=== PATIENT | male | born 1960 | race Caucasian/White ===

== ENCOUNTER 2021-04-11 08:42 | Observation (INO) | payer BC ==
[2021-04-11] VITALS (8 sets, daily range): BP systolic 103–145; BP diastolic 60–80
[~2021-04-11] VITALS: Ht 175.3 cm; Wt 86.8 kg
--- NOTE | ~2021-04-11 | EMS ---
[facility] [address] [place] [address] EMS Patient Care Report Name: MARY RAMOS Room #: 206-P DELANEY Sherman#: [id number] Admission: 04/11/21 Attend Phys: Tod Tenorio MD, Discharge: 04/13/21 Date of : 60 Report #: [id number] THIS REPORT FOR: //name// Report Transmitted: 04/15/2021 13:19 EMS Care Summary [facility] Incident [id number] @ 04/11/2021 08:12 Incident Location [address] [place] [address] Patient Mary Ramos Male, 61 Years 1960 Patient Address [address] [place] [address] Patient Allergies Allergic state (disorder), Disposition Transported No Lights/[place] Dispatch Reason No Other Appropriate Choice Transported To [facility] Narrative E 5 dispatched to provide rapid critical care transport of a patient with probable inferior STEMI for interventional cardiology services not available locally. Per YOJANA Huerta, pt presented to ED at approximately 0800 after experiencing acute onset of chest pressure and bilateral arm numbness at approximately 0530. EKG revealed probable inferior STEMI. Pt found lying on ED stretcher. Pt assessed and placed on E monitor, and moved to [facility] sled. Pt secured with all available safety straps and loaded into running AC without complication. Pt transported to [facility] with ongoing monitoring en route. Pt given 100 mcg fentanyl for 6/10 chest discomfort, with reported reduction in discomfort to 3/10. Upon arrival to [facility], pt taken to cath lab technologist, printed paperwork and verbal report given to assembled team and pt care transferred. [facility] [address] [place] [address] EMS Patient Care Report Name: MARY RAMOS Room #: 206-P DELANEY Sherman#: [id number] Admission: 04/11/21 Attend Phys: Tod Tenorio MD, Discharge: 04/13/21 Date of : 60 Report #: [id number] Initial Vitals @08:50P: 69,R: 32,BP: 182/91,Pain: 6/10,GCS: 15,Temp: 67.82F,SpO2: 99,Revised Trauma: 11, @08:57P: 76,R: 17,BP: 169/70,Pain: 6/10,GCS: 15,Temp: 57.56F,SpO2: 98,Revised Trauma: 12, @09:07P: 71,R: 27,BP: 171/81,Pain: 3/10,GCS: 15,Temp: 72.14F,SpO2: 97,Revised Trauma: 12, @09:17P: 81,R: 18,BP: 173/88,Pain: 3/10,GCS: 15,Temp: 75.55840502511219N,SpO2: 97,Revised Trauma: 12, @09:27P: 69,R: 24,BP: 161/88,Pain: 3/10,GCS: 15,Temp: 74.84F,SpO2: 98,Revised Trauma: 12, @09:35P: 72,R: 18,BP: 187/96,Pain: 3/10,GCS: 15,Temp: 68.18F,SpO2: 96,Revised Trauma: 12, Assessments @08:47MENTAL:SKIN:HEENT:LUNG SOUNDS:ABDOMEN:PELVIS//GI:EXTREMITIES:PULSE:NEURO:@09:29MENTAL:SKIN:HEENT:LUNG SOUNDS:ABDOMEN:PELVIS//GI:EXTREMITIES:PULSE:NEURO: Impression ST elevation (STEMI) myocardial infarction of other sites Procedures @PTANitroglycerin - 10 Micrograms per Minute (mcg/min) - Intravenous (IV) Response: Unchanged @PTAHeparin Infusion - 1000 Units per Hour (units/hr) - Intravenous (IV) Response: Unchanged @PTAHeparin Infusion - 4000 International Units (IU) - Intravenous (IV) Response: Unchanged @PTAAspirin - 325 Milligrams (mg) - Oral Response: Improved @09:01 Fentanyl - 100 Micrograms (mcg) - Intravenous (IV) Response: Improved @PTAIV Therapy - cc () Site: Hand-LeftSucceeded @PTAIV Therapy - cc () Site: Other Peripheral (Not Listed)Succeeded Timeline DRAWING KILN SUPERVISOR,Nitroglycerin - 10 Micrograms per Minute (mcg/min) - Intravenous (IV),Response: Unchanged DRAWING KILN SUPERVISOR,Heparin Infusion - 1000 Units per Hour (units/hr) - Intravenous (IV),Response: Unchanged DRAWING KILN SUPERVISOR,Heparin Infusion - 4000 International Units (IU) - Intravenous (IV),Response: Unchanged DRAWING KILN SUPERVISOR,Aspirin - 325 Milligrams (mg) - Oral,Response: Improved DRAWING KILN SUPERVISOR,IV Therapy - cc Site: Hand-Left,Succeeded, DRAWING KILN SUPERVISOR,IV Therapy - cc Site: Other Peripheral (Not Listed),Succeeded, [facility] [address] [place] [address] EMS Patient Care Report Name: MARY RAMOS Room #: 206-P [facility] Susan MVivianRVivian#: [id number] Admission: 04/11/21 Attend Phys: Tod Tenorio MD, Discharge: 04/13/21 Date of : 60 Report #: [id number] 05:30,Call Received 08:12,Psap Call 08:12,Dispatched 08:25,En Route 08:41,On Scene 08:45,At Patient 08:50,BP: 182/91 M,PULSE: 69,RR: 32 R,SPO2: 99 Ox,ETCO2: ,BG: ,PAIN: 6,GCS: 15, 08:51,Transfer Of Care 08:57,BP: 169/70 M,PULSE: 76,RR: 17 R,SPO2: 98 Ox,ETCO2: ,BG: ,PAIN: 6,GCS: 15, 08:58,Depart Scene 09:01,Fentanyl - 100 Micrograms (mcg) - Intravenous (IV),Response: Improved 09:07,BP: 171/81 M,PULSE: 71,RR: 27 R,SPO2: 97 Ox,ETCO2: ,BG: ,PAIN: 3,GCS: 15, 09:17,BP: 173/88 M,PULSE: 81,RR: 18 R,SPO2: 97 Ox,ETCO2: ,BG: ,PAIN: 3,GCS: 15, 09:25,At Destination 09:27,BP: 161/88 M,PULSE: 69,RR: 24 R,SPO2: 98 Ox,ETCO2: ,BG: ,PAIN: 3,GCS: 15, 09:35,BP: 187/96 M,PULSE: 72,RR: 18 R,SPO2: 96 Ox,ETCO2: ,BG: ,PAIN: 3,GCS: 15, 10:19,In District 10:19,Call Closed Disclaimer v1.1 Copyright 2021 [email or web address] This EMS Care Summary contains data elements from the applicable legal record (which may be displayed differently). It is designed to provide pertinent information for the following purposes: continuity of care, clinical quality, and state data reporting. The complete legal record is available to ED staff and administrators of the receiving hospital in [employer]'s Patient Tracker. All data is provided "as is."
[2021-04-11 10:40] LABS: HEMATOCRIT 44.4 % (42.0-52.0); HEMOGLOBIN 14.9 gm/dL (14.0-18.0); MCH 30.6 pg (26.0-34.0); MCHC 33.5 g/dL (28.0-37.0); MCV 91.5 fL (80.0-100.0); RBC 4.86 mil/uL (4.50-6.00); RDW 12.9 % (10.5-14.5); WBC 12.9 thou/uL (4.0-11.0)
[2021-04-11 10:58] LABS: ALBUMIN 3.4 g/dL (3.4-5.0); CALCIUM 8.5 mg/dL (8.5-10.1); POTASSIUM 4.1 mmol/L (3.5-5.1); TOTAL BILIRUBIN 0.2 mg/dL (0.2-1.0); TOTAL PROTEIN 6.7 g/dL (6.4-8.2)
--- NOTE | 2021-04-11 11:34 | NUR ---
PT ADMITTED FROM INTERNET CONSULTANT AND ORIENTED TO ROOM AND UNIT. BED LOW AND LOCKED, SIDE RAILS UPX3, CALL LIGHT IN REACH. TELE APPLIED AND RIGHT GROIN CDI. WILL CONTINUE TO ASSESS.
--- NOTE | 2021-04-11 15:10 | NUR ---
CONTACT CARDIAC REGIONAL BUSINESS MANAGER ALFREDO DELGADO TO INFORM PT HAD A 11 BEAT RUN OF VTACH AND SOME SOA. INSTRUCTED TO KEEP MONITORING PATIENT AND IF SOA GETS WORSE CONTACT DR. GUEVARA.
--- NOTE | 2021-04-11 15:59 | NUR ---
SPOKE WITH DR. GUEVARA AND INSTRUCTED TO RUN 1 MORE BOTTL OF INTEGRILIN THEN
[2021-04-12 00:04] VITALS: BP 117/61
--- NOTE | 2021-04-12 03:48 | NUR ---
PT HAS BEEN SLEEPING MOST OF THE NIGHT. RESPIRATIONS EVEN AND UNLABORED. RIGHT GROIN CATH SITE C/D/I, WITHOUT HEMATOMA. VSS. AFEBRILE. PT HAS DENIED ANY CHEST PAIN SO FAR DURING THE NIGHT. 2L NC PRN FOR COMFORT. SPO2 >92% ON RA. PT IS UP AD JAY JAY TO THE BTR WITH STEADY GAIT. PROGRESSING TOWARD POC GOALS. WILL CONTINUE TO MONITOR FURTHER.
[2021-04-12 04:27] LABS: HEMATOCRIT 38.9 % (42.0-52.0); HEMOGLOBIN 13.3 gm/dL (14.0-18.0); MCH 31.1 pg (26.0-34.0); MCHC 34.2 g/dL (28.0-37.0); MCV 91.2 fL (80.0-100.0); RBC 4.27 mil/uL (4.50-6.00); RDW 12.7 % (10.5-14.5); WBC 12.2 thou/uL (4.0-11.0)
[2021-04-12 04:30] VITALS: BP 126/63
[2021-04-12 04:45] LABS: CHOLESTEROL 161 mg/dL (<200); HDL CHOLESTEROL 27 mg/dL (>40); LDL CHOLESTEROL 107 mg/dL (<100); TRIGLYCERIDE 137 mg/dL (<150); VLDL 27 mg/dL (<40)
[2021-04-12 04:46] LABS: SERUM ASSESSMENT Clear
--- NOTE | 2021-04-12 07:28 | EKG ---
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
--- NOTE | 2021-04-12 07:29 | EKG ---
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
[2021-04-12 07:50] VITALS: BP 127/73
--- NOTE | 2021-04-12 11:08 | 2DMMODE ---
[facility] [place] [address] 2 D/M-MODE ECHOCARDIOGRAM Name: MARY KERR Room #: 206-P ADM IN M.R.#: [id number] Admission: 04/11/21 Attend Phys: Tod Tenorio MD, Discharge: Date of : 60 Report #: [id number] THIS REPORT FOR: cc: FAM - Family physician unknown FAM - Family physician unknown Coleman Lehman MD [facility] ~ APPROVED REPORT Study performed: 04/12/2021 08:59:59 EXAM: Comprehensive 2D, Doppler, and color-flow Echocardiogram Patient Location: Bedside Room #: 206 Status: routine BSA: 2.00 HR: 59 bpm BP: 127/73 mmHg Rhythm: Bradycardia Other Information Study Quality: Adequate Indications Diabetes CAD Cardiomyopathy STEMI 2D Dimensions RVDd: 37.57 mm IVSd: 9.60 (7-11mm) LVOT Diam: 19.51 (18-24mm) LVDd: 53.84 mm PWd: 11.01 (7-11mm) Ascending Ao: 27.67 (22-36mm) LVDs: 38.94 (25-40mm) Left Atrium: 39.34 (27-40mm) Aortic Root: 34.01 mm IVC: 19.00 mm Volumes Left Atrial Volume (Systole) Single Plane 4CH: 44.95 mL Single Plane 2CH: 48.49 mL LA ESV Index: 26.00 mL/m2 Aortic Valve [facility] [address] [place] [address] 2 D/M-MODE ECHOCARDIOGRAM Name: MARY KERR Room #: [address] [place] [address] IN .R.#: [id number] Admission: 04/11/21 Attend Phys: Tod Tenorio, Discharge: Date of : 60 Report #: [id number] AoV Peak Chris.: 1.13 m/s AO Peak Gr.: 5.09 mmHg LVOT Max P.02 mmHg LVOT Max V: 1.00 m/s JACQUELINE Vmax: 2.65 cm2 Mitral Valve E/A Ratio: 1.3 MV Decel. Time: 175.50 ms MV E Max Chris.: 0.99 m/s MV A Chris.: 0.78 m/s MV PHT: 50.89 ms IVRT: 110.73 ms Pulmonary Valve PV Peak Chris.: 0.87 m/s PV Peak Gr.: 3.03 mmHg Pulmonary Vein P Vein S: 0.67 m/s P Vein A: 0.26 m/s P Vein D: 0.32 m/s P Vein A Dur.: 124.6 msec P Vein S/D Ratio: 2.09 Left Ventricle The left ventricle is normal size. There is normal left ventricular wall thickness. Left ventricular systolic function is mildly decreased. Hypokinesis of base of the inferior and inferolateral dill LVEF 45-50%. The left ventricular diastolic function is normal. Right Ventricle The right ventricle is normal size. The right ventricular systolic function is normal. Atria The left atrium size is normal. The right atrium size is normal. Aortic Valve The aortic valve is mildly sclerotic. No aortic regurgitation is present. There is no aortic valvular stenosis. Mitral Valve The mitral valve is normal in structure. Mild mitral regurgitation. No evidence of mitral valve stenosis. Tricuspid Valve The tricuspid valve is normal in structure. There is no tricuspid [facility] [address] [place] [address] 2 D/M-MODE ECHOCARDIOGRAM Name: USHACRAPO Room #: 206-P ADM IN M.R.#: [id number] Admission: 04/11/21 Attend Phys: Tod Tenorio, Discharge: Date of : 60 Report #: [id number] valve regurgitation noted. Pulmonic Valve The pulmonary valve is normal in structure. There is no pulmonic valvular regurgitation. Great Vessels The aortic root is normal in size. IVC is normal in size and collapses >50% with inspiration. Pericardium There is no pericardial effusion. <Conclusion> Left ventricular systolic function is mildly decreased. LVEF 50%. Hypokinesis of base of the inferior and inferolateral dill The left ventricular diastolic function is normal. The aortic valve is mildly sclerotic. No aortic regurgitation or stenosis Structurally normal mitral valve. Mild mitral regurgitation. Pulmonary artery pressure could not be reliably ascertained There is no pericardial effusion. <ELECTRONICALLY SIGNED> By: Coleman Lehman MD, FACC 04/12/21 1108 07 07 Coleman Lehman MD, FACC /INF
[2021-04-12 11:33] VITALS: BP 140/75
[2021-04-12 15:40] VITALS: BP 151/77
--- NOTE | 2021-04-12 18:49 | NUR ---
PT RESTED IN BED AND AMBULATED ROOM TODAY. NO C/O SOA OR CHEST PAIN. TAKING IN GOOD PO. WILL CONTINUE TO ASSESS.
[2021-04-12 19:24] VITALS: BP 142/82
[2021-04-13 00:02] VITALS: BP 139/80
--- NOTE | 2021-04-13 03:27 | NUR ---
RECEIVED CARE OF THIS PATIENT AT 1900. PATIENT ALERT AND ORIENTED X4. UP AD JAY JAY. DRESSING IN R GROIN INTACT. NO SIGN OF HEMATOMA OR ANY OTHER PROBLEM. SLEPT MOST OF THE NIGHT. DENIES PAIN.
[2021-04-13 03:52] VITALS: BP 105/61
[2021-04-13 07:30] VITALS: BP 135/75
[2021-04-13] MEDS ORDERED: LIPITOR40 MG PO (07:37)
[2021-04-13] MEDS ORDERED: EFFIENT10 MG PO (07:37)
[2021-04-13] MEDS ORDERED: ASPIRIN325 PO (07:37)
[2021-04-13] MEDS ORDERED: COZAAR 25 MG TA25 M1 PO (07:38)
[2021-04-13 12:00] VITALS: BP 141/82
[2021-04-13 14:31] VITALS: BP 141/82
--- NOTE | 2021-04-13 15:53 | NUR ---
ASSESSMENT CHARTED - MEDS PER KENNETH GONZALEZ DIET AND FLUIDS. NO CO'S OF \PAIN OR NAUSA. UIP AD JAY JAY IN ROOM - GROIN SITE C/D/I. PT HOME THIS AFTERNOON - INSTRUCTION RE HOME MEDS/ CARE AND FOLLOW UP GIVEN TO PATIENT STATED UNDERSTANDING OF INSTRUCTION GIVEN. LEFT UNIT VIA WHEELCHAIR - HOME WITH SON VIA PVT VEHICLE NO CO'S AQT TIME OF D/C.
--- NOTE | 2021-04-14 14:34 | CATHLAB ---
[facility] [place] [address] INVASIVE PROCEDURE REPORT Name: MARY KERR Room #: 206-P [facility] Susan MАлександр#: [id number] Admission: 04/11/21 Attend Phys: Tod Tenorio MD, Discharge: 04/13/21 Date of : 60 Report #: [id number] THIS REPORT FOR: cc: FAM - Family physician unknown FAM - Family physician unknown Tod Tenorio MD [facility] ~ APPROVED REPORT Study performed: 04/11/2021 08:46:23 Patient Details Patient Status: ED Room #: The patient is a 61 year-old male Event Personnel Tod Tenorio Copping Machine Operator, Emilee Boogie RTR Monitor, Aiyana Hassan Dubreuil, Ashley RN cutter first Performed Art Access - R femoral artery* Left Heart Cath w/or w/o Coronaries [id number] [facility] H[facility] Revasc AMI Total/Sub Single CIRC C9606 AMIREVSING Aortogram Abdominal Peripheral Angio 051337 Hemostasis w/ Mynx 60476 Initial Mod Sed Same Phys/QHP Gr5y 744305 32725 Mod Sed Same Phys/QHP Ea 573326 Indication STEMI , Chest pain Procedure Narrative The Right Groin^ was infiltrated with 1% Lidocaine subcutaneous anesthesia. A PINNACLE 6FR Sheath #[id number] sheath was inserted into the RFA^. Coronary angiography was performed using coronary diagnostic catheters. The right coronary system was accessed and visualized with a JR4 catheter. The left coronary system was accessed and visualized with a JL4 catheter. The left ventricle was accessed and visualized with a PIGTAIL catheter. Left ventriculogram was performed in 30 degree projection. An aortogram of the abdominal aorta was performed. Closure device was deployed with a Fr MYNXGRIP 6/7F #[id number]. The patient tolerated the procedure well and there were no complications associated with the procedure. There was no hematoma. Intraoperative Conscious Sedation Sedation start time: 9:47 Case end Time: [facility] [address] [place] [address] INVASIVE PROCEDURE REPORT Name: USHANORTH BEND Room #: 206-P [facility] IN M.R.#: [id number] Admission: 04/11/21 Attend Phys: Tod Tenorio, Discharge: 04/13/21 Date of : 60 Report #: [id number] 10:59 Fentanyl 50 mcg Versed 1 mg Fluoro Time: 6.00 minutes Dose: DAP 6855.30 cGycm2 855 mGy Contrast Type and Amount: Visipaque 185 ml Hemodynamics The aortic pressure is 174/81 mmHg with a mean of 87 mmHg. The left ventricular pressure is 182/13 mmHg with a mean of mmHg. The left ventricular end diastolic pressure is 28 mmHg. PCI Technique Lesion Percutaneous coronary intervention was performed on the proximal circumflex artery segment. A LAUNCHER 6FR EBU 3.5 #[id number] Guide Catheter was used to engage the ostium. A Luge Wire .014 x 182CM #[id number] Interventional Guidewire was used to cross the lesion. BALLOON DILATION A Balloon catheter Sprinter OTW 2.25 x 12 #[id number] was inserted and inflated up to 8.00atm for 19seconds. Additional Inflation: 12.00atm for 23seconds. STENT DEPLOYMENT A drug-eluting stent RESOLUTE KIKI OTW 2.5 X 15 #[id number] was inserted and inflated up to 18.00atm for 27seconds. Conclusion #1 Successful emergent PTCA stent of an anatomically dominant circumflex artery with a proximal mid vessel total occlusion to 0% residual placement of a 2.5 x 15 resolute Dunbar FELICITA grade III flow moderate disease in the first OM and distal OM this is anatomically dominant #2 left main with mild ostial disease of 30% giving rise to LAD and circumflex. #3 the LAD is an eccentric 60 to 70% proximal lesion just off the left main diagonal branch mildly diseased this LAD extends around the apex. #4 small nondominant high-grade lesion in mid RCA. #5 normal left ventricular size inferior basilar severely hypokinetic EF 45 to 50% #6 abdominal aorta is mildly ectatic no aneurysm. Recommendations and plan: Continue aggressive risk factor modification. Dual antiplatelet therapy has been initiated. [facility] [address] [place] [address] INVASIVE PROCEDURE REPORT Name: KERRMARY Room #: 206-P [facility] IN M.R.#: [id number] Admission: 04/11/21 Attend Phys: Tod Tenorio, Discharge: 04/13/21 Date of : 60 Report #: [id number] Integrilin drip will be maintained on transfer to the CCU to follow post stent protocol. Patient had significant bradycardic heart block response to opening of this dominant circumflex this is resolved. <ELECTRONICALLY SIGNED> By: Tod Tenorio MD, FACC 04/14/21 143 32 32 Tod Tenorio MD, FACC /INF
== END 2021-04-13 14:45 | disposition home or self-care (01) ==
LOC: TBACV 08:42 → 2N 11:25
PROVIDERS: ADMIT Internal Medicine Cardiovascular Disease; ATTEND Internal Medicine Cardiovascular Disease
DX: I21.3 ST elevation (STEMI) myocardial infarction of unspecified site (principal); I25.10 Atherosclerotic heart disease of native coronary artery without angina pectoris; E78.5 Hyperlipidemia, unspecified; I73.9 Peripheral vascular disease, unspecified; F17.200 Nicotine dependence, unspecified, uncomplicated; Z79.82 Long term (current) use of aspirin; Z79.899 Other long term (current) drug therapy
CPT/HCPCS: 10797

== ENCOUNTER → 2021-06-07 | Outpatient (CLI) | payer BC, OTHER ==
[~2021-06-07] MED LIST: ASPIRIN325 PO; BENICAR40 MG PO; COZAAR 25 MG TA25 M1 PO; EFFIENT10 MG PO; LIPITOR40 MG PO; ZETIA10 MG PO
== END ==
LOC: SJCVCIMAG 07:30
PROVIDERS: ATTEND Internal Medicine Cardiovascular Disease
DX: I71.4 Abdominal aortic aneurysm, without rupture (principal); I65.23 Occlusion and stenosis of bilateral carotid arteries

== ENCOUNTER 2021-06-08 06:31 | Observation (INO) | payer BC, OTHER ==
[~2021-06-08] VITALS: Ht 175.3 cm; Wt 81.6 kg
[~2021-06-08 06:31] MED LIST changes: -BENICAR40 MG PO; -ZETIA10 MG PO
[2021-06-08 07:57] VITALS: BP 154/69
[2021-06-08 08:11] LABS: HEMATOCRIT 43.2 % (42.0-52.0); HEMOGLOBIN 14.5 gm/dL (14.0-18.0); MCH 30.2 pg (26.0-34.0); MCHC 33.5 g/dL (28.0-37.0); MCV 90.1 fL (80.0-100.0); RBC 4.79 mil/uL (4.50-6.00); RDW 12.5 % (10.5-14.5); WBC 9.6 thou/uL (4.0-11.0)
[2021-06-08 08:21] LABS: CALCIUM 9.2 mg/dL (8.5-10.1); CREATININE 1.1 mg/dL (0.7-1.3); POTASSIUM 4.4 mmol/L (3.5-5.1)
[2021-06-08] MEDS ORDERED: ZETIA10 MG PO (08:21)
[2021-06-08] MEDS ORDERED: BENICAR40 MG PO (08:21)
[2021-06-08 12:30] VITALS: BP 123/73
[2021-06-08 15:00] VITALS: BP 151/81
--- NOTE | 2021-06-08 16:40 | NUR ---
PT TO THE UNIT POST CATH - ORIENTED TO ROOM AND BED SPACE - VSS AND GROIN SITE C/D/I POST PROCEDURE - PT UP AD JAY JAY IN ROOM GROIN REMAINS STABLE. LISA DIET AND FLUIDS. NO CO'S OF PAIN OR NAUSEA. NO CO'S AT THE PRESENT TIME.
[2021-06-08 20:15] VITALS: BP 153/79
--- NOTE | 2021-06-08 22:25 | CATHLAB ---
[facility] [place] [address] INVASIVE PROCEDURE REPORT Name: MARY KERR Room #: 213-P ADM Susan M.RVivian#: [id number] Admission: 06/08/21 Attend Phys: Tod Tenorio MD, Discharge: Date of : 60 Report #: [id number] THIS REPORT FOR: cc: FAM - Family physician unknown FAM - Family physician unknown Tod Tenorio MD [facility] ~ APPROVED REPORT Study performed: 06/08/2021 08:30:25 Patient Details Patient Status: Out-Patient Room #: The patient is a 61 year-old male Event Personnel Tod Tenorio Back Pad Inspector, Emilee Boogie RTR Monitor, Mona Rivera RTR, TRIMMING MACHINE SET UP OPERATOR Scrub, Eli Watkins RN RN, Stevo Cerda RN bone grinder Performed Art Access - R femoral artery* Left Heart Cath w/or w/o Coronaries [id number] [facility] HIREN Place w/wo Plasty Single LAD 622352 Hemostasis w/ Mynx 02964 Initial Mod Sed Same Phys/QHP Gr5y 841633 66038 Mod Sed Same Phys/QHP Ea 798406 Indication Positive stress test, Chest pain Procedure Narrative The Right Groin^ was infiltrated with 1% Lidocaine subcutaneous anesthesia. A PINNACLE 6FR Sheath #[id number] sheath was inserted into the RFA^. Coronary angiography was performed using coronary diagnostic catheters. The right coronary system was accessed and visualized with a JR4 catheter. The left coronary system was accessed and visualized with a JL4 catheter. The left ventricle was accessed and visualized with a PIGTAIL catheter. Left ventricular/Aortic Valve gradient assessed via catheter pullback. Left ventriculogram was performed in 30 degree projection. Closure device was deployed with a 6 Fr MYNXGRIP 6/7F #[id number]. The patient tolerated the procedure well and there were no complications associated with the procedure. There was no hematoma. Intraoperative Conscious Sedation Sedation start time: 08:49 Case end Time: [facility] [address] [place] [address] INVASIVE PROCEDURE REPORT Name: USHARIO DELL Room #: 213-P [facility] IN .R.#: [id number] Admission: 06/08/21 Attend Phys: Tod Tenorio, Discharge: Date of : 60 Report #: [id number] 09:45 Fentanyl 50 mcg Versed 2 mg Fluoro Time: 4.60 minutes Dose: DAP 8026.50 cGycm2 1148 mGy Contrast Type and Amount: Omnipaque 140 ml Hemodynamics The aortic pressure is 120/46 mmHg with a mean of 44 mmHg. The left ventricular pressure is 137/0 mmHg with a mean of mmHg. The left ventricular end diastolic pressure is 8 mmHg. PCI Technique Lesion Percutaneous coronary intervention was performed on the proximal left anterior descending artery segment. A LAUNCHER 6FR EBU 3.5 #[id number] Guide Catheter was used to engage the ostium. A Luge Wire .014 x 182CM #[id number] Interventional Guidewire was used to cross the lesion. BALLOON DILATION A Balloon catheter Sprinter OTW 2.5 x 12 #[id number] was inserted and inflated up to 12.00atm for 18seconds. STENT DEPLOYMENT A drug-eluting stent RESOLUTE KIKI RX 3.0 X 8 #[id number] was inserted and inflated up to 12.00atm for 25seconds. Additional Inflation: 16.00atm for 21seconds. Conclusion #1 Successful PTCA stent of the proximal LAD 80% stenosis to 0% placement of a 3.0 x 8 resolute drug-eluting stent postdilated 3.2 mm FELICITA grade III flow in the LAD diagonal system. #2 the left main is mild disease giving rise to the LAD and circumflex. Mild ostial disease on the left main of 20 to 30% is noted. #3 the circumflex OM is dominant prior infarct vessel in the proximal mid stent is widely patent with diffusely diseased and small distal OM system. Proximal OM branch is 1.5 mm vessel with 80% ostial lesion continue to treat this medically. #4 nondominant right coronary artery is occluded. #5 normal left ventricular size with subtle anterior lateral wall leg EF 50% range. Recommendations and plan: Continue aggressive risk factor modification. Dual antiplatelet therapy has been initiated. Patient [facility] [address] [place] [address] INVASIVE PROCEDURE REPORT Name: MARY KERR Room #: 213-P [facility] IN M.R.#: [id number] Admission: 06/08/21 Attend Phys: Tod Tenorio, Discharge: Date of : 60 Report #: [id number] is pain-free and resolution of EKG changes. Transfer to U to follow post coronary stent protocol. <ELECTRONICALLY SIGNED> By: Tod Tenorio MD, FACC 06/08/212224 24 24 Tod Tenorio MD, FACC /INF
[2021-06-09 04:45] VITALS: BP 129/75
[2021-06-09 06:41] LABS: HEMATOCRIT 42.3 % (42.0-52.0); HEMOGLOBIN 14.2 gm/dL (14.0-18.0); MCH 30.3 pg (26.0-34.0); MCHC 33.7 g/dL (28.0-37.0); MCV 90.2 fL (80.0-100.0); RBC 4.69 mil/uL (4.50-6.00); RDW 12.6 % (10.5-14.5); WBC 9.6 thou/uL (4.0-11.0)
[2021-06-09 07:25] LABS: CALCIUM 9.1 mg/dL (8.5-10.1); CREATININE 1.1 mg/dL (0.7-1.3); POTASSIUM 4.7 mmol/L (3.5-5.1); TOTAL BILIRUBIN 0.5 mg/dL (0.2-1.0); TOTAL PROTEIN 6.4 g/dL (6.4-8.2)
[2021-06-09 07:29] VITALS: BP 132/74
--- NOTE | 2021-06-09 08:15 | NUR ---
ASSUMED PT CARE AT 1900, ALERT AND ORIENTED, DENIES CP OR SOB, SA/SB ON TELE, R. GROIN SITE REMAINED CDI, NO HEMATOMA, ASSESSMENTS CHARTED, NO ACUTE DISTRESS NOTED, REPORT GIVEN TO DAY RN
--- NOTE | 2021-06-09 08:24 | EKG ---
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 : 1960 Requested By: Harleen De Luna Order Number: [id number] MD: Riki Jimenez Measurements Intervals [place] Rate: 62 P: 48 HI: 146 QRS: 69 QRSD: 108 T: 32 QT: 434 QTc: 441 Interpretive Statements Sinus rhythm Atrial premature complexes RSR' in V1 or V2, probably normal variant Compared to ECG 04/12/2021 07:27:06 Atrial premature complex(es) now present RSR' in V1 or V2 now present Myocardial infarct finding no longer present Electronically Signed On 06-09-2021 8:23:52 ROLL COVERER by Riki Jimenez [email or web address] <ELECTRONICALLY SIGNED> By: Riki Jimenez MD, FACC 06/09/21 0823 5 Riki Jimenez MD, [facility] /EPI
--- NOTE | 2021-06-09 09:58 | NUR ---
pT a & o X4. Pt Vs stable. Pt is a-fib on tele. Pt is independent with cares and ADLs and is up ad boo. Pt denies pain/discomfort. Pt right groin site stable and shows no signs of hematoma or bleeding noted. Pt received medications as ordered. Pt received discharge orders to home. instructions reviewed with pt and pt verbalizes understanding and signed instructions. pt wheeled in wheelchair with personal belongings and left hospital without incident in private vehicle.
== END 2021-06-09 11:04 | disposition home or self-care (01) ==
LOC: CATH 06:31 → 2N 07:51
PROVIDERS: Nurse Practitioner Adult Health; ADMIT Internal Medicine Cardiovascular Disease; ATTEND Internal Medicine Cardiovascular Disease
DX: I25.10 Atherosclerotic heart disease of native coronary artery without angina pectoris (principal); I10 Essential (primary) hypertension; E78.5 Hyperlipidemia, unspecified; I25.2 Old myocardial infarction; Z79.82 Long term (current) use of aspirin; Z79.899 Other long term (current) drug therapy